=== PATIENT | female | born 1950 | race Caucasian/White ===

== ENCOUNTER 2024-08-27 09:00 | Outpatient (RCR) | payer MEDICARE, BC, SELFPAY ==
--- NOTE | 2024-08-26 13:04 | ONC.NURNOTE ---
Dx: Right lung cancer
== END 2025-02-07 23:59 | disposition home or self-care (01) ==
LOC: CCIC 09:00
PROVIDERS: PCP Family Medicine; Visit Provider Clinical Nurse Specialist
DX: C34.01 Malignant neoplasm of right main bronchus (principal)
CPT/HCPCS: 99211